=== PATIENT | male | born 1950 | race Caucasian/White ===

== ENCOUNTER → 2016-11-17 | Outpatient (CLI) | payer MEDICARE, OTHER ==
--- NOTE | 2016-11-17 16:53 | PCVCIMAG ---
APPROVED REPORT Study performed: 11/17/2016 14:29:56 EXAM: Comprehensive 2D, Doppler, and color-flow Echocardiogram Patient Location: Echo lab Status: routine Indications Mitral Valve Disease Mitral Valve Prolapse Hypertension/HDD MODERATE/SEVERE MITRAL REGURGITATION 2D Dimensions LVEF(%): 65.49 (>50%) IVSd: 6.61 (7-11mm)LVOT Diam: 23.17 (18-24mm) LVDd: 59.70 mm PWd: 6.28 (7-11mm)Ascending Ao: 30.83 (22-36mm) LVDs: 37.86 (25-40mm) Left Atrium: 33.46 (27-40mm) Aortic Root: 28.86 mm LV Single Plane 4CH: 58.64 % LV Single Plane 2CH: 62.18 %Rodriguez's LVEF: 60.41 % Biplane EF: 59.7 % Volumes Left Atrial Volume (Systole) Single Plane 4CH: 112.11 mLSingle Plane 2CH: 100.59 mL LA ESV Index: 55.00 mL/m2 Aortic Valve AoV Peak Jae.: 1.03 m/s AO Peak Gr.: 4.28 mmHgLVOT Max P.38 mmHg LVOT Max V: 0.77 m/s BERNARDO Vmax: 3.14 cm2 Mitral Valve E/A Ratio: 3.2 MV Decel. Time: 157.29 ms MV E Max Jae.: 1.21 m/s MV A Jae.: 0.38 m/s MV Max Jae.: 3.52 m/s MV Mean Jae.: 2.72 m/s IVRT: 145.33 ms Pulmonary Valve PV Peak Jae.: 1.26 m/sPV Peak Gr.: 6.31 mmHg Pulmonary Vein P Vein S: 0.53 m/sP Vein A: 0.25 m/s P Vein D: 0.49 m/sP Vein A Dur.: 65.7 msec P Vein S/D Ratio: 1.08 Tricuspid Valve TR Peak Jae.: 2.52 m/s TR Peak Gr.: 25.43 mmHg TV Vmax: 0.90 m/sPA Pressure: 32.00 mmHg Left Ventricle Left ventricle is moderately dilated. There is normal LV segmental wall motion. There is normal left ventricular wall thickness. The left ventricular systolic function is normal. The left ventricular ejection fraction is within the normal range. LVEF is 60%. Transmitral Doppler flow pattern suggests restrictive physiology. Right Ventricle The right ventricle is normal size. The right ventricular systolic function is normal. Atria Left atrium is severely dilated. The right atrium size is normal. Aortic Valve The aortic valve is normal in structure. No aortic regurgitation is present. There is no aortic valvular stenosis. 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 Severe mitral regurgitation No evidence of mitral valve stenosis. Tricuspid Valve The tricuspid valve is normal in structure. Mild TR with a PA pressure of 32mmHg Pulmonic Valve The pulmonary valve is normal in structure. There is no pulmonic valvular regurgitation. Great Vessels The aortic root is normal in size. The ascending aorta is normal in size. IVC is normal in size and collapses with >50% inspiration The pulmonary artery is normal. Pericardium There is no pericardial effusion. There is no pleural effusion. <Conclusion> The left ventricular systolic function is normal. There is normal LV segmental wall motion. LVEF is 60%. LVESD 38mm Left atrium is severely dilated. The aortic valve is normal in structure. No stenosis. 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 Severe mitral regurgitation Mild TR with a PA pressure of 32mmHg There is no pericardial effusion.
== END | disposition home or self-care (01) ==
LOC: PCVCIMAG 14:42
PROVIDERS: ATTEND Internal Medicine
DX: I34.0 Nonrheumatic mitral (valve) insufficiency (principal); I10 Essential (primary) hypertension; G20 Parkinson's disease; E78.5 Hyperlipidemia, unspecified; Z87.891 Personal history of nicotine dependence; Z79.899 Other long term (current) drug therapy; Z88.1 Allergy status to other antibiotic agents
CPT/HCPCS: 80061; 93306; G0463; 93005

== ENCOUNTER → 2017-01-31 | Outpatient (CLI) | payer MEDICARE, OTHER | END | disposition home or self-care (01) | LOC: PCVCCLINIC 16:08 | PROVIDERS: ATTEND Internal Medicine | DX: I34.0 Nonrheumatic mitral (valve) insufficiency (principal); G20 Parkinson's disease; E78.2 Mixed hyperlipidemia; Z86.79 Personal history of other diseases of the circulatory system; Z87.891 Personal history of nicotine dependence; Z88.8 Allergy status to other drugs, medicaments and biological substances | CPT/HCPCS: G0463 ==

== ENCOUNTER → 2017-02-22 | Outpatient (CLI) | payer MEDICARE ==
[~2017-02-22] MED LIST: BENZOCAINE ONE 20% MUCOSAL SPRAY.; IOHEXOL 350 MG/ML 100 ML VIAL. ONE; IOHEXOL 350 MG/ML 50 ML VIAL. ONE; IV NORMAL SALINE 1000ML BAG 1,000 ML ONE; LIDOCAINE 1% Multi-Dose 20 ML VIAL. ONE; MIDAZOLAM HCL/PF 2 MG/2 ML VIAL. ONE; fentaNYL PF VIAL 100 MCG/2 ML VIAL ONE
--- NOTE | 2017-02-22 12:32 | PCVCIMAG ---
APPROVED REPORT Study performed: 02/22/2017 09:41:51 EXAM: Comprehensive 2D, Doppler, and color-flow Echocardiogram Patient Location: [facility] Status: routine BSA: 2.00 HR: 58 bpmBP: 117/72 mmHg Rhythm: NSR Other Information Study Quality: Good Indications Mitral Valve Prolapse Echo Enhancing Agent Indication: Rule out Shunt Agent(s) / Amount(s) Used: Agitated Saline cc Comments: Negative contrast study for shunt flow. Procedure After obtaining informed consent, patient underwent transesophageal echo in the [facility]. Type of Sedation : Conscious Sedation Sedation was administered by Nathaly Salguero RN. Sedation was achieved intravenously with: Versed (2mg) Fentanyl (100mcg) Transesophageal probe was inserted and advanced into esophagus without difficulty by Rocky Nieto MD. Echo enhancement indication: R/O Septal defect. Echo enhancement agent administered: Agitated Saline The LOUISA was performed without complications. Throughout the procedure, the blood pressure, pulse oximetry, cardiac rhythm, and rate were monitored. The patient tolerated the procedure without adverse effects. Recovery from conscious sedation was uneventful and vital signs were stable. Left Ventricle The left ventricle is normal size. There is normal LV segmental wall motion. There is normal left ventricular wall thickness. The left ventricular systolic function is normal. The left ventricular ejection fraction is within the normal range. No masses or clot in the left atrium or appendage. LVEF is 55-60%. Right Ventricle The right ventricle is normal size. The right ventricular systolic function is normal. Atria The left atrium size is normal. No shunting by contrast bubble injection. The right atrium size is normal. Aortic Valve Trileaflet aoritc valve, minimally sclerotic Trace aortic regurgitation. There is no aortic valvular stenosis. Mitral Valve Posterior mitral leaflet prolapse Severe, eccentric mitral regurgitation. No evidence of mitral valve stenosis. Tricuspid Valve The tricuspid valve is normal in structure. Mild tricuspid valve regurgitation noted. Pulmonic Valve The pulmonary valve is normal in structure. There is no pulmonic valvular regurgitation. Great Vessels The aortic root is normal in size. The ascending aorta is normal in size. Pericardium There is no pericardial effusion. <Conclusion> The left ventricular systolic function is normal. There is normal LV segmental wall motion. LVEF is 55-60%. Mild left atrial enlargement. Trileaflet aoritc valve, minimally sclerotic. Trace aortic regurgitation, no stenosis. Posterior mitral leaflet prolapse with severe, eccentric mitral regurgitation. No masses or clots in left atrium or appendage. No shunting by contrast bubble injection. There is no pericardial effusion.
--- NOTE | 2017-02-22 12:38 | PCVCINTER ---
APPROVED REPORT Patient Details Patient Status: Out-Patient Room #: 1 The patient is a 66 year-old Male Event Personnel Emilia Simmons MD, Jose M Andersen RN, Yadira Patrick RT(R), Yves Ge RT(R)() Risk Factors Arterial HypertensionDysplipidemia (Type: 1), HypercholesterolemiaPhysical Activity, Last Creatanine 1.1Tobacco History (Former) Previous Procedures/Diagnoses Valvular heart disease, Hypertension Procedure Narrative The patient was brought electively to the Cardiac Catheterization Laboratory and was prepped and draped in a sterile manner. The right femoral was infiltrated with 1% Lidocaine subcutaneous anesthesia. A Right Heart Catheterization was performed with a 7 Fr. [place]-Romy catheter and pressure were recorded. Cardiac outputs were obtained by the Thermal Dilution method. A 6fr sheath was inserted into the right femoral artery. Coronary angiography was performed using coronary diagnostic catheters. The right coronary system was accessed and visualized with a JR4 Diagnostic catheter. The left coronary system was accessed and visualized with a JL4 Diagnostic catheter. The left ventricle was accessed and visualized with a Angled Pigtail Diagnostic catheter. Left ventriculogram was performed in GAUTAM projection. Closure device was deployed with a 6 Fr Mynx. Hemostasis was obtained with manual pressure following sheath removal without any complications. The patient tolerated the procedure well and there were no complications associated with the procedure. There was no hematoma. Fluoro Time: 4.4 minutes Contrast Type and Amount: 105 ml Omni 350 Coronary Angiography The patient's coronary anatomy is right dominant. Diagnostic Cath Left MainNormal LADThe LAD is a large vessel that extends to the distal inferior wall. Angiographically normal Diagonal 1The LAD gives rise to a single large bifurcating diagonal branch which is angiographically normal CircumflexLarge but anatomically nondominant. Angiographically normal [id number] is a single distally bifurcating marginal branch that appears to be angiographically normal Right CoronaryThe right coronary is dominant and angiographically normal R PDALarge posterior descending, normal Left Ventriculography The left ventricle is normal in size with normal contractility. The left ventricular ejection fraction is estimated to be 60%. Left ventricular wall motion abnormalities are not present. There is severe mitral insufficiency. Hemodynamics The right atrial mean pressure is 4 mmHg. The right ventricular pressure is 32/2 mmHg. The pulmonary artery pressure is 32/12 mmHg with a mean of 21 mmHg. The mean pulmonary capillary wedge pressure is 13 mmHg. The aortic pressure is 110/28 mmHg with a mean of 60 mmHg. The left ventricular pressure is 86/1 mmHg with a mean of 7 mmHg. The left ventricular end diastolic pressure is 7 mmHg. There was no gradient across the aortic valve upon pullback. The cardiac output and index were assessed using thermodilution. The cardiac output using thermo method is 4.40 L/min. The cardiac index using thermo method is 2.2 L/min/m2.
== END | disposition home or self-care (01) ==
LOC: PCVCINTER 09:03
PROVIDERS: ATTEND Internal Medicine
DX: I08.3 Combined rheumatic disorders of mitral, aortic and tricuspid valves (principal); I34.1 Nonrheumatic mitral (valve) prolapse; E78.5 Hyperlipidemia, unspecified; G20 Parkinson's disease; E78.00 Pure hypercholesterolemia, unspecified
CPT/HCPCS: 93312; 93325; 93460; 99152; 99153; C1751; C1760; J1644; J2250; J3010; J7030; Q9967; C1894

== ENCOUNTER → 2017-04-26 | Outpatient (CLI) | payer MEDICARE | END | disposition home or self-care (01) | LOC: PCVCCLINIC 10:40 | PROVIDERS: ATTEND Internal Medicine | DX: I48.0 Paroxysmal atrial fibrillation (principal); E78.5 Hyperlipidemia, unspecified; I10 Essential (primary) hypertension; G20 Parkinson's disease; Z98.890 Other specified postprocedural states; Z87.891 Personal history of nicotine dependence; Z79.899 Other long term (current) drug therapy | CPT/HCPCS: 80061; 93005; G0463 ==

== ENCOUNTER → 2017-06-06 | Outpatient (CLI) | payer MEDICARE | END | disposition home or self-care (01) | LOC: PCVCCLINIC 14:00 | DX: I34.0 Nonrheumatic mitral (valve) insufficiency (principal); E78.2 Mixed hyperlipidemia; G20 Parkinson's disease; I10 Essential (primary) hypertension; Z98.890 Other specified postprocedural states; Z87.891 Personal history of nicotine dependence; Z79.899 Other long term (current) drug therapy | CPT/HCPCS: G0463 ==

== ENCOUNTER → 2017-12-06 | Outpatient (CLI) | payer MEDICARE | END | disposition home or self-care (01) | LOC: PCVCIMAG 15:06 | DX: I10 Essential (primary) hypertension (principal); I34.0 Nonrheumatic mitral (valve) insufficiency; G20 Parkinson's disease; E78.5 Hyperlipidemia, unspecified; Z98.890 Other specified postprocedural states; Z87.891 Personal history of nicotine dependence; Z79.899 Other long term (current) drug therapy; Z79.82 Long term (current) use of aspirin | CPT/HCPCS: 80061; 93306; G0463 ==

== ENCOUNTER → 2018-06-18 | Outpatient (CLI) | payer MEDICARE | END | disposition home or self-care (01) | LOC: PCVCCLINIC 14:50 | PROVIDERS: ATTEND Internal Medicine | DX: G20 Parkinson's disease (principal); I34.0 Nonrheumatic mitral (valve) insufficiency; E78.5 Hyperlipidemia, unspecified; I10 Essential (primary) hypertension; Z98.890 Other specified postprocedural states | CPT/HCPCS: 93005; G0463 ==

== ENCOUNTER → 2018-12-16 | Outpatient (CLI) | payer MEDICARE | END | disposition home or self-care (01) | LOC: PCVCCLINIC 14:46 | PROVIDERS: ATTEND Internal Medicine | DX: I34.0 Nonrheumatic mitral (valve) insufficiency (principal); I10 Essential (primary) hypertension; E78.5 Hyperlipidemia, unspecified; G20 Parkinson's disease; Z98.890 Other specified postprocedural states; Z79.82 Long term (current) use of aspirin | CPT/HCPCS: 36415; 80061; 93005; G0463 ==